=== PATIENT | female | born 1965 | race African-American/Black ===

== ENCOUNTER 2016-12-09 07:30 | Inpatient (IN) ==
[2017-01-08 15:06] LABS: MANUAL DIFF NEEDED? NO; URINE MICRO REVIEW NEEDED? NO; URINE SOURCE CLEAN CATCH
[2017-01-08 15:12] LABS: BASO% 0.3 % (0.0-0.8); BILIRUBIN URINE NEGATIVE (NEGATIVE); BLOOD URINE NEGATIVE (NEGATIVE); COLOR YELLOW; EOS# 0.25 X1000 (0.0-0.7); EOS% 3.6 % (0.0-10.0); GLUCOSE URINE NEGATIVE (NEGATIVE); HEMATOCRIT 38.3 % (37.0-47.0); HEMOGLOBIN 12.4 g/dL (12.0-16.0); LEUKOCYTES URINE NEGATIVE (NEGATIVE); LYMPH% 20.1 % (20.5-51.1); MCH 30.8 PG (27-31); MCHC 32.4 g/dL (33-37); MONO# 0.63 X1000 (0.11-0.59); MPV 10.3 FL (7.4-10.4); NITRITE URINE NEGATIVE (NEGATIVE); PH URINE 5.5; PLT 222 X1000 (130-400); PROTEIN URINE TRACE mg/dL (NEGATIVE); RBC 4.03 XMIL (4.2-5.4); TURBIDITY URINE CLEAR (CLEAR); UR EPITHELIAL CELLS <10 /HPF (<10); URINE BACTERIA 4+ /HPF; URINE RBC <10 /HPF (<10); URINE WBC <10 /HPF (<10); UROBILINOGEN URINE NORMAL (NORMAL)
[2017-01-08 15:20] LABS: INR 0.97; PROTIME 10.2 Seconds (9.2-11.7); PTT 24.7 Seconds (22.0-36.0)
[2017-01-08 15:32] LABS: AGAP 10; BUN 11 mg/dL (8-22); CALCIUM 9.3 mg/dL (8.8-10.2); CHLORIDE 106 mmol/L (98-107); COSMO 284; POTASSIUM 3.1 mmol/L (3.5-5.1); SODIUM 143 mmol/L (136-145); TCO2 27 mmol/L (25-35)
--- NOTE | 2017-01-08 16:41 | EKG Report ---
Test Performed on : 01/08/2017 2:21:03 PM Test Reason : PAT Blood Pressure : / mmHG Vent. Rate : 069 BPM Atrial Rate : 069 BPM P-R Int : 104 ms QRS Dur : 072 ms QT Int : 414 ms P-R-T Axes : 056 017 037 degrees QTc Int : 443 ms Sinus rhythm. with short AR Possible Left atrial enlargement Borderline ECG When compared with ECG of 01-APR-2016 05:56, No significant change was found Confirmed by Erlinda Kuo MD ([id number]) on 01/10/2017 12:58:28 PM
[2017-01-13] MEDS ORDERED: REGLAN ONE (09:38)
[2017-01-13] MEDS ORDERED: LYRICA ONE (09:38)
[2017-01-13] MEDS ORDERED: COLACE ONE (09:38)
[2017-01-13] MEDS ORDERED: PEPCID ONE (09:38)
[2017-01-13] MEDS ORDERED: CELEBREX ONE (09:38)
[2017-01-13] MEDS ORDERED: VANCOMYCIN 1 GM/NS 1 GM/250 ML IVPB ONE (09:39)
[2017-01-13] MEDS ORDERED: LR 1,000 ML ONE (09:39)
[2017-01-13] MEDS ORDERED: SENSORCAINE 0.25%/EPI 1:200,000 ONE (11:40)
[2017-01-13] MEDS ORDERED: CYKLOKAPRON 1,000 MG/NS 2,000 MG/200 ML IVPB ONE (11:40)
[2017-01-13] MEDS ORDERED: VANCOMYCIN ONE (11:40)
[2017-01-13] MEDS ORDERED: TORADOL ONE (11:40)
[2017-01-13] MEDS ORDERED: SODIUM CHLORIDE 0.9% ONE (11:40)
[2017-01-13] MEDS ORDERED: DURAMORPH ONE (11:40)
[2017-01-13] MEDS ORDERED: NEOSPORIN G.U. IRRIGANT ONE (11:41)
[2017-01-13] MEDS ORDERED: EXPAREL 1.3% ONE (11:41)
[2017-01-13] MEDS ORDERED: DIPRIVAN 1% ONE (12:18)
[2017-01-13] MEDS ORDERED: NORCURON ONE (12:22)
[2017-01-13] MEDS ORDERED: SODIUM CHLORIDE 0.9% 10 ML ONE (12:22)
[2017-01-13] MEDS ORDERED: QUELICIN (DOSE) ONE (12:22)
[2017-01-13] MEDS ORDERED: XYLOCAINE-MPF 2% ONE (12:24)
[2017-01-13] MEDS ORDERED: OFIRMEV 1000 MG/ISOTONIC SOLN 1,000 MG/100 ML BOTTLE ONE (13:02)
[2017-01-13] MEDS ORDERED: ZOFRAN ONE (13:02)
[2017-01-13] MEDS ORDERED: DECADRON ONE (13:02)
[2017-01-13] MEDS ORDERED: FENTANYL ONE (13:16)
[2017-01-13 13:20] LABS: URINE MICRO REVIEW NEEDED? NO; URINE SOURCE CATH
[2017-01-13 13:22] LABS: BILIRUBIN URINE NEGATIVE (NEGATIVE); BLOOD URINE NEGATIVE (NEGATIVE); COLOR YELLOW; GLUCOSE URINE NEGATIVE (NEGATIVE); LEUKOCYTES URINE NEGATIVE (NEGATIVE); NITRITE URINE NEGATIVE (NEGATIVE); PH URINE 6.5; PROTEIN URINE NEGATIVE (NEGATIVE); SP GRAVITY URINE 1.017; TURBIDITY URINE CLEAR (CLEAR); UR EPITHELIAL CELLS <10 /HPF (<10); URINE BACTERIA NEGATIVE /HPF; URINE RBC <10 /HPF (<10); URINE WBC <10 /HPF (<10); UROBILINOGEN URINE 2 mg/dL (NORMAL)
[2017-01-13] MEDS ORDERED: ROBINUL ONE ×4 (13:27→14:17)
[2017-01-13] MEDS ORDERED: NEOSTIGMINE ONE (14:07)
[2017-01-13] MEDS ORDERED: NS 1,000 ML ONE (14:51)
[2017-01-13] MEDS: MORPHINE ONE ×2 (15:10→15:15)
[2017-01-13] MEDS ORDERED: MORPHINE ONE (15:38)
[2017-01-13] MEDS ORDERED: MORPHINE IV PRN (17:15)
[2017-01-13] MEDS ORDERED: ZOFRAN IV PRN (17:15)
[2017-01-13] MEDS ORDERED: MILK OF MAGNESIA PO PRN (17:30)
[2017-01-13] MEDS ORDERED: AMBIEN PO PRN (17:30)
[2017-01-13] MEDS: GLUCOPHAGE PO SCH (17:43)
[2017-01-13] MEDS: OXY IR PO PRN ×2 (17:43→20:30)
[2017-01-13] MEDS: TYLENOL PO SCH (17:44)
[2017-01-13] MEDS: KLOR-CON PO SCH (17:44)
[2017-01-13] MEDS: NS 1,000 ML IV SCH (17:44)
[2017-01-13] MEDS: ULTRAM PO SCH (18:15)
--- NOTE | 2017-01-13 19:03 | OPERATIVE NOTE ---
PROCEDURE DATE: 01/13/2017 PREOPERATIVE DIAGNOSIS: Right knee degenerative joint disease. POSTOP DIAGNOSIS: Right knee degenerative joint disease. PROCEDURE: Right total knee arthroplasty using a [facility] size 4 femur, a size 4 tibial base plate, a 10 mm polyethylene insert and a 35 mm patellar component. ANESTHESIA: General. SURGEON: Dr. Ugalde. SAP DATA ARCHITECT: Hannah Rodriguez PA-C who was present throughout the case and was critical with assisting in the preparation for the total knee, the cementing of the total knee and wound closure. 2ND SAP DATA ARCHITECT: Edenilson Peterson PA-C. COMPLICATIONS: None. BLOOD LOSS: Minimal. DRAINS: Hemovac x1. TOURNIQUET TIME: Approximately hour and a half. DESCRIPTION OF PROCEDURE: The patient brought to the operative suite and placed in supine position. After successful administration of general anesthesia, a well-padded tourniquet was placed on the right proximal thigh and right lower extremity was prepped and draped in usual sterile fashion. Leg was exsanguinated. Tourniquet insufflated to 350 torr. A longitudinal incision made beginning superior pole of patella extended distally tibia tuberosity, was dissected sharply through skin. Full-thickness skin flaps were elevated medially and laterally. A medial arthrotomy was made with vastus snip. The medial capsule was elevated off the medial tibial plateau. Prepatellar fat pad, ACL, PCL, medial meniscus, lateral meniscus were excised. A drill was entered in the center of distal femur. Intramedullary guide was placed, his cutting block was pinned in place, distal cut was made with oscillating saw. Femur sized to size 4, size 4 cutting block was pinned in place. Anterior cuts, chamfer cuts and posterior condylar cuts were made with oscillating saw. Marginal osteophytes removed with rongeur. A box cutting block was pinned in place. A box cut was made with a box osteotome and oscillating saw. The posterior condyle osteophytes removed with curved osteotome and rongeur. Attention then directed to the tibia. A drill was entered in the center tibia, intramedullary guide was placed, line was checked with drop reginaldo referencing off the anterior cortex tibia and the second ray of the foot and then taking 4 mm off the low side of the tibia which this case was medially. The tibial cutting block was pinned in place. The articular surface of the tibial plateau was made with oscillating saw. Marginal osteophytes removed with rongeur. Flexion-extension gaps were checked and balanced at 10 mm. The tibia sized to size 4, size 4 guide was used for the fin punch. The tibial trial, femoral trial and 10 mm articular insert placed, taken through range of motion, found to have excellent alignment, balancing, range of motion. Attention was then directed to patella, 9 mm of the articular surface of patella removed with oscillating saw, patella sized to size 35. A size 35 guide was used for the peg holes. The lateral facet was chamfered 30-45 degrees. Patella trial was placed, taken through range of motion found have excellent patella tracking. All trials were then removed. Knee was copiously irrigated and dried being certain all bone debris was removed. The tibial component, femoral component and patellar component were cemented in place excess cement being removed with a [place]. Once the cement had hardened excess cement was again removed with an osteotome. Knee was again copiously irrigated and dried being certain all bone and cement were removed. The trial articular insert was removed. The knee was copiously infiltrated with Exparel including the posterior capsule, anterior capsule, medial and lateral collateral ligaments, anterior musculature and subcutaneous tissue, the definitive 10 mm articular insert was then locked into place, the knee was again taken through range of motion, again found to have excellent alignment, balancing, range of motion and patellar tracking. A drain was placed exiting superolaterally and buried in the lateral gutter. The medial arthrotomy was closed with a running 0 V-Loc suture. The skin edge approximated with 2-0 Vicryl. Skin was closed with Prineo. A sterile dressing was applied. The patient tolerated the procedure well without complication. At the end the procedure all counts were correct x2. The patient was transferred to the recovery room in stable condition. cc: Macario Ugalde MD
[2017-01-13] MEDS: DULERA 100 MCG/5 MCG INHALER INH SCH (19:56)
[2017-01-13] MEDS: PERIDEX MT SCH (20:21)
[2017-01-13] MEDS: OMNICEF PO SCH (20:21)
[2017-01-13] MEDS: ZANAFLEX PO SCH (20:21)
[2017-01-13] MEDS: LYRICA PO SCH (20:22)
[2017-01-13] MEDS: COLACE PO SCH (20:24)
[2017-01-13] MEDS: CELEBREX PO SCH (20:24)
[2017-01-13] MEDS: COREG PO SCH (20:30)
[2017-01-13] MEDS: PATIENT'S OWN MED PO SCH (20:30)
[2017-01-13] MEDS ORDERED: LIPITOR PO SCH (21:00)
[2017-01-14] MEDS: TYLENOL PO SCH ×3 (00:20→12:21)
[2017-01-14] MEDS: ULTRAM PO SCH ×3 (00:20→12:21)
[2017-01-14] MEDS ORDERED: VANCOMYCIN 1 GM/NS 1 GM/250 ML IVPB IV ONE (00:30)
[2017-01-14 05:49] LABS: HEMATOCRIT 36.6 % (37.0-47.0); HEMOGLOBIN 11.6 g/dL (12.0-16.0)
[2017-01-14] MEDS ORDERED: XARELTO PO SCH (06:00)
[2017-01-14 06:16] LABS: AGAP 13; BUN 12 mg/dL (8-22); CALCIUM 8.6 mg/dL (8.8-10.2); CHLORIDE 101 mmol/L (98-107); COSMO 273; POTASSIUM 4.6 mmol/L (3.5-5.1); SODIUM 136 mmol/L (136-145); TCO2 22 mmol/L (25-35)
[2017-01-14] MEDS: NS 1,000 ML IV SCH (06:41)
[2017-01-14] MEDS: ZANAFLEX PO SCH ×2 (06:41→12:22)
[2017-01-14] MEDS ORDERED: SPIRIVA INH SCH (07:30)
[2017-01-14] MEDS: DULERA 100 MCG/5 MCG INHALER INH SCH (07:56)
[2017-01-14 08:33] VITALS: BP 104/63
[2017-01-14] MEDS ORDERED: NON-FORMULARY MED PO SCH (09:00)
[2017-01-14] MEDS ORDERED: FERROUS SULFATE PO SCH (09:00)
[2017-01-14] MEDS ORDERED: DECADRON IV ONE (09:00)
[2017-01-14] MEDS ORDERED: PRINIVIL PO SCH (09:00)
[2017-01-14] MEDS ORDERED: CELEXA PO SCH (09:00)
[2017-01-14] MEDS ORDERED: PEPCID PO SCH (09:00)
[2017-01-14] MEDS: OMNICEF PO SCH (09:08)
[2017-01-14] MEDS: GLUCOPHAGE PO SCH (09:08)
[2017-01-14] MEDS: LYRICA PO SCH (09:09)
[2017-01-14] MEDS: COREG PO SCH (09:09)
[2017-01-14] MEDS: COLACE PO SCH (09:09)
[2017-01-14] MEDS: KLOR-CON PO SCH ×2 (09:09→12:22)
[2017-01-14] MEDS: CELEBREX PO SCH (09:09)
[2017-01-14] MEDS: PERIDEX MT SCH (09:10)
[2017-01-14] MEDS: PATIENT'S OWN MED PO SCH (09:12)
--- NOTE | 2017-01-14 19:32 | DISCHARGE SUMMARY ---
ADMISSION DATE: 01/13/2017 DISCHARGE DATE: 01/14/2017 DISCHARGE DIAGNOSIS: Right knee degenerative joint disease status post right total knee arthroplasty. DISCHARGE MEDICATIONS: See discharge medication list. DISPOSITION: The patient is discharged home with home health. DISCHARGE INSTRUCTIONS FOR TOTAL KNEE ARTHROPLASTY PROTOCOL: Instructed to return to see Dr. Ugalde next . HOSPITAL COURSE: On the day of admission, patient underwent a right total knee arthroplasty. Her postoperative course was unremarkable. Her hemoglobin is 11.3 and hematocrit is 36.6. She had 100 mL of drainage from her Hemovac. Her wound is clean, dry, and intact without sign of infection. Her calf is soft. She will be discharged home after working with Physical Therapy this morning. She will be discharged home with home health, in stable condition, with instructions to follow up as described above. Dictated by AILYN Palmer for Macario Ugalde MD cc: AILYN Palmer MD
== END 2017-01-14 13:33 | disposition home health service (06) ==
LOC: SURHOLD 01-13 09:12 → 4N 01-13 12:44
PROVIDERS: ADMIT Orthopaedic Surgery; ATTEND Orthopaedic Surgery

== ENCOUNTER 2019-08-18 07:42 | Inpatient (IN) ==
--- NOTE | 2019-08-18 08:05 | Diag Imaging Result Doc PS360 ---
EXAM: CT HEAD W/O CONTRAST HISTORY: stroke like sx TECHNIQUE: Images were obtained from the skull base to vertex without IV contrast as per standard protocol. This exam was performed using automated exposure control, adjustment of mA or kV according to patient size, and/or use of iterative reconstruction technique. COMPARISON: 05/15/2018 Extra-axial spaces: Normal. No hematoma is appreciated. Ventricular system /subarachnoid spaces/cisterns: Unremarkable. No hydrocephalus. No hemorrhage is appreciated. Cerebral parenchyma : There are is an old right parietal infarct. Mild diffuse cerebral atrophy. No hemorrhage is appreciated. Midline shift: None. Cerebellum/Brain stem: Unremarkable. Calvarium: No fracture is identified. Paranasal sinuses and mastoid air cells: Right maxillary mucous retention cyst or polyp. Otherwise, unremarkable. Visualized orbits: Normal. IMPRESSION: Old right parietal infarct. Cerebral atrophy. No acute intracranial abnormality is appreciated. Electronically signed by Jazmin Mcfadden 08/18/2019 8:03 AM
--- NOTE | 2019-08-18 08:06 | Diag Imaging Result Doc PS360 ---
EXAM: CHEST-1 VIEW HISTORY: stroke like sx TECHNIQUE: Single view. COMPARISON: 06/04/2019 FINDINGS: Exam is limited by portable technique and body habitus. The cardiomediastinal silhouette is within normal limits. The pulmonary vasculature is not congested. No infiltrate, effusion, or pneumothorax is appreciated. Marked degenerative arthropathy bilateral shoulders. IMPRESSION: No acute cardiopulmonary abnormality is identified. Electronically signed by Jazmin Mcfadden 08/18/2019 8:04 AM
[2019-08-18] MEDS ORDERED: NS 1,000 ML IV PRN (08:10)
--- NOTE | 2019-08-18 08:17 | PROVIDER DOCUMENTATION ---
HPI-Neurological Disorder - General Chief Complaint: STROKE ALERT Stated Complaint: CVA Time Seen by Provider: 08/18/19 08:02 Source: patient Allergies/Adverse Reactions: Patient Allergies Allergy/AdvReac Type Severity Reaction Status Date / Time Penicillins Allergy SWELLING Verified 06/28/19 15:06 Home Medications: Home Medication List Medication Instructions Recorded Confirmed Last Taken Type ATORVAstatin [Lipitor] 80 mg PO QHS 03/28/16 08/18/19 04/05/18 21:00 History Citalopram [Celexa] 40 mg PO DAILY 03/28/16 08/18/19 04/05/18 09:00 History Metformin HCl 500 mg PO BID 03/28/16 08/18/19 04/05/18 21:00 History Apixaban [Eliquis] 1 tab PO BID 02/14/18 08/18/19 04/05/18 21:00 History Aspirin [[place] Chewable Aspirin] 81 mg PO DAILY 02/14/18 08/18/19 04/05/18 09:00 History Albuterol 2.5MG/Ipratrop 0.5MG 3 ml IN Q4HR PRN 02/15/18 08/18/19 04/05/18 09:00 History [Duoneb (A & A)] Gabapentin 300 mg PO TID 02/15/18 08/18/19 04/05/18 21:00 History Montelukast [Singulair] 1 tab PO DAILY 02/15/18 08/18/19 04/05/18 21:00 History Albuterol Sulfate [Proair Hfa] 2 puff INH BID 05/16/18 08/18/19 Unknown History Mometasone/Formoterol [Dulera 200 2 puff INH DAILY PRN 05/16/18 08/18/19 Unknown History Mcg/5 Mcg Inhaler] Hydrocodone/Acetaminophen 1 ea PO 4XDAY PRN 10/09/18 08/18/19 Unknown History [Hydrocodone-Acetamin 5-325 mg] Cholecalciferol (Vitamin D3) 50,000 unit PO DIRECTED #8 cap 10/10/18 08/18/19 Unknown Rx [Vitamin D] Magnesium Oxide [Mag-Ox] 800 mg PO BID #10 tab 10/10/18 08/18/19 Unknown Rx Potassium Chloride [Klor-Con M20] 20 meq PO DAILY 12/04/18 08/18/19 Unknown History Buspirone HCl 1 tab PO BID 08/18/19 08/18/19 Unknown History Carvedilol [Coreg] 6.25 mg PO BID 08/18/19 08/18/19 Unknown History Ergocalciferol (Vitamin D2) 1 tab PO DIRECTED 08/18/19 08/18/19 Unknown His tory [Vitamin D] Escitalopram [Lexapro] 10 mg PO DAILY 08/18/19 08/18/19 Unknown History Furosemide [Lasix] 40 mg PO DIRECTED 08/18/19 08/18/19 Unknown History Pantoprazole [Protonix] 40 mg PO DAILY@0700 08/18/19 08/18/19 Unknown History - History of Present Illness-Neuro Nature of Presenting Problem: this am ~0700, 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 No fever. Has some difficulty with speech as well. No CP, No SOB, No N/V. Had a CVA in 09/2017. Sx continue, nothing makes better, worse Severity: reports: moderate Onset/Duration: reports: abrupt Timing: reports: still present Context: reports: impaired speech Character of Altered Mental Status: reports: N/A Any recent trauma/injury?: reports: none Character of Deficits: reports: new weakness Review of Systems - Adult - REVIEW OF SYSTEMS - ADULT Constitutional: reports: no symptoms reported Eyes: reports: no symptoms reported Ears, Nose, Mouth & Throat: reports: no symptoms reported Cardiovascular: reports: no symptoms reported Respiratory: reports: no symptoms reported Gastrointestinal: reports: no symptoms reported Genitourinary: reports: no symptoms reported Musculoskeletal: reports: no symptoms reported Integumentary: reports: no symptoms reported Neurological: reports: see HPI Psychiatric: reports: no symptoms reported Endocrine: reports: no symptoms reported Hematologic/Lymphatic: reports: no symptoms reported Allergic/Immunologic: reports: no symptoms reported Past History - Adult - PAST MEDICAL HISTORY-ADULT Review of Records: reports: Medications Reviewed Major Childhood Illnesses: reports: denies history Cardiovascular: reports: CAD, CHF ("enlarged heart"), HTN, hyperlipidemia, [place] Respiratory: reports: asthma, COPD, other (pulmonary embolism) Gastrointestinal: reports: GERD Obstetrical/Gynecological: reports: denies history Genitourinary: reports: denies history Musculoskeletal: reports: arthritis, chronic pain (biltateral knees) Neurological: reports: CVA, stroke deficits Psychiatric: reports: depression Endocrine/Immune: reports: Diabetes Other Conditions: reports: denies history - PRIOR SURGERIES/PROCEDURES Surgical/Procedure History: reports: cholecystectomy, hysterectomy, orthopedic (extremity), joint replacement - IMMUNIZATION STATUS Childhood Immunizations: See Nurse Assessment Flu Vaccine: See Nurse Assessment - FAMILY HISTORY Family History: reviewed, not pertinent - SOCIAL HISTORY Smoking: denies Physical Exam- Neurological - Physical Exam-Neuro Initial Vital Signs Reviewed: Yes General Appearance: alert, moderate distress Eye Exam: bilateral eye: normal inspection, PERRL, EOMI HENMT: normocephalic/atraumatic, moist mucous membranes, normal ENT inspection, pharynx normal Head Injury: no evidence of injury Neck: full range of motion, supple Respiratory: lungs clear, normal breath sounds, no pleuratic chest pain, no respiratory distress, no accessory muscle use Cardiovascular: normal peripheral pulses, regular rate, rhythm Abdominal Exam: normal bowel sounds, non tender, soft Peripheral Pulses: radial (R): 2+ 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 sl weakness L CN VII, div 1-3) Coordination/Gait: normal finger to nose (On R, cannot lift L arm, has only2/5 stregnth L leg) Motor/Sensory: no sensory deficit Integumentary: normal color, normal turgor, warm/dry Psych/Mental Status: normal mood/affect, normal thought content, normal thought process, oriented x 3 - [place] Coma Scale Best Eye Response: (4) open spontaneously Best Verbal Response: (5) oriented Best Motor Response: (6) obeys commands Progress - PLAN OF CARE/RESULTS Progress/Plan/Lab Results: Vital Signs - 8 hr 08/18/19 08:01 08/18/19 08:29 08/18/19 10:07 Temperature 98.5 F Pulse Rate 60 57 L 59 L Respiratory Rate 18 20 20 Blood Pressure 172/85 158/91 O2 Sat by Pulse Oximetry 99 99 100 Laboratory Results - last 24 hr 08/18/19 08/18/19 08/18/19 08:20 08:20 08:20 WBC 5.35 RBC 4.04 L Hgb 11.8 L Hct 37.9 MCV 93.8 MCH 29.2 MCHC 31.1 L RDW Std Deviation 14.9 H Plt Count 220 MPV 10.2 Immature Gran % (Auto) 0.0 Neut % (Auto) 63.5 Lymph % (Auto) 21.7 [place] % (Auto) 11.0 H Eos % (Auto) 3.4 Baso % (Auto) 0.4 Immature Gran # (Auto) 0.00 Neut # (Auto) 3.40 Lymph # (Auto) 1.16 L [place] # (Auto) 0.59 Eos # (Auto) 0.18 Baso # (Auto) 0.02 PT 13.8 INR 1.01 PTT (Actin FS) 27.5 Sodium 144 Potassium 3.9 Chloride 102 Carbon Dioxide 30 Anion Gap 12 BUN 11 Creatinine 0.8 Estimated GFR/1.73 m2 > 60 BUN/Creatinine Ratio 14 Glucose 88 Calculated Osmolality 286 Calcium 9.8 Total Bilirubin 0.50 AST 19 ALT 19 Alkaline Phosphatase 96 Troponin T High Sens Total Protein 7.1 Albumin 4.4 Globulin 3.0 Albumin/Globulin Ratio 2.0 Urine Source Urine Color Urine Clarity Urine Turbidity Urine pH Ur Specific [place] Urine Protein Ur Glucose (Stick) Urine Ketones Ur Ketones (Stick) Urine Blood Urine Nitrite Urine Bilirubin Urine Urobilinogen Urobilinogen Dipstick Urine Leukocytes Urine WBC (Auto) Urine RBC (Auto) U Epithel Cells (Auto) Urine Bacteria (Auto) Urine Microscopic RBC Urine WBC Urine Microscopic WBC Ur Epithelial Cells Urine Crystals Urine Bacteria Urine Casts Urine Yeast Urine Glucose Urine Opiates Screen Ur Oxycodone Screen Urine Methadone Screen U Propoxyphene Qual Ur Barbituates Screen Ur Tricyclics Screen Ur Phencyclidine Scrn Ur Amphetamines Screen U Methamphetamines Scrn U Benzodiazepines Scrn Urine Cocaine Screen U Cannabinoids Screen 08/18/19 08/18/19 08/18/19 08:20 08:40 08:40 WBC RBC Hgb Hct MCV MCH MCHC RDW Std Deviation Plt Count MPV Immature Gran % (Auto) Neut % (Auto) Lymph % (Auto) [place] % (Auto) Eos % (Auto) Baso % (Auto) Immature Gran # (Auto) Neut # (Auto) Lymph # (Auto) [place] # (Auto) Eos # (Auto) Baso # (Auto) PT INR PTT (Actin FS) Sodium Potassium Chloride Carbon Dioxide Anion Gap BUN Creatinine Estimated GFR/1.73 m2 BUN/Creatinine Ratio Glucose Calculated Osmolality Calcium Total Bilirubin AST ALT Alkaline Phosphatase Troponin T High Sens 15 Total Protein Albumin Globulin Albumin/Globulin Ratio Urine Source CATH Urine Color YELLOW Urine Clarity CLEAR Urine Turbidity Cancelled Urine pH 7.0 Ur Specific [place] 1.000 Urine Protein NEGATIVE Ur Glucose (Stick) Cancelled Urine Ketones NEGATIVE Ur Ketones (Stick) Cancelled Urine Blood NEGATIVE Urine Nitrite NEGATIVE Urine Bilirubin NEGATIVE Urine Urobilinogen 0.2 Urobilinogen Dipstick Cancelled Urine Leukocytes Cancelled Urine WBC (Auto) Cancelled Urine RBC (Auto) Cancelled U Epithel Cells (Auto) Cancelled Urine Bacteria (Auto) Cancelled Urine Microscopic RBC <10 Urine WBC TRACE A Urine Microscopic WBC <10 Ur Epithelial Cells <10 Urine Crystals NONE SEEN Urine Bacteria NEGATIVE Urine Casts NONE SEEN Urine Yeast NONE SEEN Urine Glucose NEGATIVE Urine Opiates Screen PRESUMPTIVE POSITIVE A Ur Oxycodone Screen NONE DETECTED Urine Methadone Screen NONE DETECTED U Propoxyphene Qual NONE DETECTED Ur Barbituates Screen NONE DETECTED Ur Tricyclics Screen NONE DETECTED Ur Phencyclidine Scrn NONE DETECTED Ur Amphetamines Screen NONE DETECTED U Methamphetamines Scrn NONE DETECTED U Benzodiazepines Scrn NONE DETECTED Urine Cocaine Screen NONE DETECTED U Cannabinoids Screen NONE DETECTED Orders Category Date Time Status Cardiac Monitoring DIRECTED Care 08/18/19 08:11 Active Finger Stick Blood Sugar (ED) DIRECTED Care 08/18/19 08:11 Active Misc. NRSG Communication Order DIRECTED Care 08/18/19 08:11 Active Saline Loc NOW Care 08/18/19 08:11 Active CHEST-1 VIEW [RAD] Stat Exams 08/18/19 07:[address] HEAD W/O CONTRAST [CT] Stat Exams 08/18/19 07:50 Completed CBC WITH ELECTRONIC DIFF [HEME] Stat Lab 08/18/19 08:20 Completed COMPREHENSIVE METABOLIC PANEL [CHEM] Stat Lab 08/18/19 08:20 Completed PROTIME WITH INR [COAG] Stat Lab 08/18/19 08:20 Completed PTT [COAG] Stat Lab 08/18/19 08:20 Completed TROPONIN T HIGH SENSITIVITY Stat Lab 08/18/19 08:20 Completed URINE CULTURE [RM] Routine Lab 08/18/19 09:23 [address] DRUG SCREEN [address] Stat Lab 08/18/19 08:40 Completed 0.9% Sodium Chloride Inj [Ns] 1,000 ml Med 08/18/19 08:10 Active IV 130 mls/hr EKG [EKG] Stat Ther 08/18/19 08:11 Draft Result Diagrams: 08/18/19 08:20 08/18/19 08:20 - XRAY 1 XRAY Study: Chest Impression: Normal (EXAM: CHEST-1 VIEW HISTORY: stroke like sx TECHNIQUE: Single view. COMPARISON: 06/04/2019 FINDINGS: Exam is limited by portable technique and body habitus. The cardiomediastinal silhouette is within normal limits. The pulmonary vasculature is not congested. No infiltrate, effusion, or pneumothorax is appreciated. Marked degenerative arthropathy bilateral shoulders. IMPRESSION: No acute cardiopulmonary abnormality is identified. Electronically signed by Jazmin Mcfadden 08/18/2019 8:04 AM 08/18/19 0804 Interpreting Physician: Jazmin Mcfadden MD Dictated Date/Time: 08/18/19 08 cc: Josh Lainez MD;) - CT/MRI 1 CT Study: Head Impression: Abnormal (EXAM: CT HEAD W/O CONTRAST HISTORY: stroke like sx TECHNIQUE: Images were obtained from the skull base to vertex without IV contrast as per standard protocol. This exam was performed using automated exposure control, adjustment of mA or kV according to patient size, and/or use of iterative reconstruction technique. COMPARISON: 05/15/2018 Extra-axial spaces: Normal. No hematoma is appreciated. Ventricular system /subarachnoid spaces/cisterns: Unremarkable. No hydrocephalus. No hemorrhage is appreciated. Cerebral parenchyma : There are is an old right parietal infarct. Mild diffuse cerebral atrophy. No hemorrhage is appreciated. Midline shift: None. Cerebellum/Brain stem: Unremarkable. Calvarium: No fracture is identified. Paranasal sinuses and mastoid air cells: Right maxillary mucous retention cyst or polyp. Otherwise, unremarkable. Visualized orbits: Normal. IMPRESSION: Old right parietal infarct. Cerebral atrophy. No acute intracranial abnormality is appreciated. Electronically signed by Jazmin Mcfadden 08/18/2019 8:03 AM 08/18/19 0803 Interpreting Physician: Jazmin Mcfadden MD Dictated Date/Time: 08/18/19 08 cc: Josh Lainez MD;) - CONSULTS/PCP/HOSPITALIST Notification #1 *Consult/PCP/Hospitalist*: [place] Time Discussed: 09:00 Consult Disposition: Will see in ED, Admit Departure - Departure Date of Disposition Decision: 08/18/19 Time of Disposition Decision: 09:00 DIAGNOSIS: CVA (cerebral vascular accident), HTN (hypertension), Non-insulin dependent type 2 diabetes mellitus, CHF (congestive heart failure) Disposition: ADMITTED INPATIENT Certified Medical Emergency: Emergent Condition: Good Referrals and Follow-Ups: Daniella Sandoval [Primary Care Provider] - - Critical Care Note This patient required my direct & personal management of CC.: No Attestation - Physician/ JELENA Attestation Patient care was provided by Advanced Practice Provider:: No The physician spent face to face time with patient:: Yes Advanced Practice Provider documentation review:: Supervising physician onsite and consulted in the evaluation and care of this patient. The physician did have a face to face encounter with the patient. - NIH Stroke Scale NIH Type: Initial Evaluation Level of Consciousness: 0-Alert LOC Questions (ask month and age): 0-Answers Both Correctly LOC Commands (ask to open & close eyes;make a fist, let go): 0-Obeys Both Correctly Best Gaze (horizontal eye movement): 0-Normal Visual (use finger movement, counting or visual threat): 0-No Visual Loss Facial Palsy (show teeth or raise eyebrows & close eyes tght: 1-Minor Paralysis Motor Function-left arm: 3-No Effort Against [place] Motor Function-right arm: 0-Normal Motor Function-left le-Some Effort Against [place] Motor Function-right le-Normal Limb Ataxia(echqiw-fjen-siwugf, or heel to alfaro): 1-Present in one limb Sensory(pin prick to face,arms,trunk,legs-compare side/side): 0-No Ataxia Best Language(name item/read sentence.Ex-Down to Earth): 1-Mild to Moderate Aphasia Dysarthria(Pt read words or say words Ex.Mama,Tip-Top,Thanks: 1-Mild-Mod Slurring Words Extinction and Inattention: 0-Normal NIH Total Score: 9 Modified [place] Score Criteria: 3-moderate disability Stroke tPA Guidelines - Inclusion Criteria for IV tPA 18 years old or older: Yes Ischemic stroke with measurable deficit: Yes Onset <3 hours ago *OR* 3-4.5 hours ago: Yes - Exclusion Criteria for IV tPA Evidence of intracranial hemorrhage on CT: No Presentation suggest SAH: No CT reveals defined area of hypodensity: No Evidence of AVM, neoplasm, aneurysm: No Seizure at stroke onset: No Active internal bleeding or acute trauma: No Platelet Count Less Than 100,000: No Heparin Within Last 48 HRS (PTT >Lab normal limits): No INR > 1.7 (warfarin use): No Use IIB/IIIA inhibitors within 24 hours: No Serious Head Trauma Within Last 3 Months: No Arterial Puncture Within Last 7 Days: No Lumbar Puncture Within Last 7 Days: No Repeated systolic Blood Pressure >185 or Diastolic >110: No - Additional Exclusion Criteria for IV tPA Patient older than 80: No Prior stroke and diabetes: Yes - Relative Contraindications to IV tPA Minor or rapidly improving stroke symptoms: No
--- NOTE | 2019-08-18 08:30 | EKG Report ---
Test Performed on : 08/18/2019 08:12:34 AM Test Reason : CVA Blood Pressure : / mmHG Vent. Rate : 058 BPM Atrial Rate : 058 BPM P-R Int : 122 ms QRS Dur : 076 ms QT Int : 428 ms P-R-T Axes : 040 019 041 degrees QTc Int : 420 ms Sinus bradycardia. Otherwise normal ECG When compared with ECG of 04-JUN-2019 18:23, (Unconfirmed) No significant change was found Unconfirmed Result
[2019-08-18 08:32] LABS: BASO# 0.02 X1000 (0.0-0.2); BASO% 0.4 % (0.0-0.8); EOS# 0.18 X1000 (0.0-0.7); EOS% 3.4 % (0.0-10.0); HEMATOCRIT 37.9 % (37.0-47.0); HEMOGLOBIN 11.8 g/dL (12.0-16.0); LYMPH# 1.16 X1000 (1.2-3.4); LYMPH% 21.7 % (20.5-51.1); MCH 29.2 PG (27-31); MCHC 31.1 g/dL (33-37); MCV 93.8 FL (81-99); MONO# 0.59 X1000 (0.11-0.59); MPV 10.2 FL (7.4-10.4); NEUT% 63.5 % (42.2-75.2); PLT 220 X1000 (130-400); RBC 4.04 XMIL (4.2-5.4); RDW 14.9 % (11.5-14.5); WBC 5.35 X1000 (4.8-10.8)
[2019-08-18 08:46] LABS: INR 1.01; PROTIME 13.8 Seconds (11.0-16.0)
[2019-08-18 08:47] LABS: AGAP 12; ALBUMIN 4.4 g/dL (3.5-5.0); ALKALINE PHOSPHATASE 96 U/L (32-104); BUN 11 mg/dL (8-22); CALCIUM 9.8 mg/dL (8.8-10.2); CHLORIDE 102 mmol/L (98-107); COSMO 286; CREATININE 0.8 mg/dL (0.5-0.9); ESTIMATED GFR > 60; GLUCOSE 88 mg/dL (70-104); GOT 19 U/L (10-30); GPT 19 U/L (10-36); POTASSIUM 3.9 mmol/L (3.5-5.1); PTT 27.5 Seconds (22.3-41.8); SODIUM 144 mmol/L (136-145); TCO2 30 mmol/L (25-35); TOTAL PROTEIN 7.1 g/dL (6.3-8.3)
[2019-08-18 08:54] LABS: URINE SOURCE CATH
[2019-08-18 09:09] LABS: UR AMPHETAMINES QUAL NONE DETECTED (NONE DETECT); UR BARBITUATES QUAL NONE DETECTED (NONE DETECT); UR BENZODIAZEPIN QUAL NONE DETECTED (NONE DETECT); UR CANNABINOIDS QUAL NONE DETECTED (NONE DETECT); UR COCAINE QUAL NONE DETECTED (NONE DETECT); UR METHADONE QUAL NONE DETECTED (NONE DETECT); UR METHAMPHETAMINE QUAL NONE DETECTED (NONE DETECT); UR OPIATES QUAL PRESUMPTIVE POSITIVE (NONE DETECT); UR OXYCODONE QUAL NONE DETECTED (NONE DETECT); UR PCP QUAL NONE DETECTED (NONE DETECT); UR PROPOXYPHENE QUAL NONE DETECTED (NONE DETECT); UR TCA QUAL NONE DETECTED (NONE DETECT)
[2019-08-18 09:10] LABS: BILIRUBIN URINE NEGATIVE (NEGATIVE); BLOOD URINE NEGATIVE (NEGATIVE); CLARITY CLEAR (CLEAR); COLOR YELLOW; GLUCOSE URINE NEGATIVE (NEGATIVE); KETONE URINE NEGATIVE (NEGATIVE); PROTEIN URINE NEGATIVE (NEGATIVE)
[2019-08-18 09:11] LABS: LEUKOCYTES URINE TRACE (NEGATIVE); NITRITE URINE NEGATIVE (NEGATIVE); UROBILINOGEN URINE 0.2 EU/dL (0.2-1.0)
[2019-08-18 09:13] LABS: URINE BACTERIA NEGATIVE /HFP; URINE CAST NONE SEEN /LPF; URINE CRYSTAL NONE SEEN /HPF; URINE EPITHELIAL CELLS <10 /HPF (<10); URINE RBC <10 /HPF (<10); URINE WBC <10 /HPF (<10); URINE YEAST NONE SEEN /HPF
[2019-08-18] MEDS ORDERED: MORPHINE IV ONE (10:17)
[2019-08-18] MEDS ORDERED: TYLENOL PO PRN (10:51)
[2019-08-18] MEDS ORDERED: DULERA 200 MCG/5 MCG INHALER INH PRN (12:36)
[2019-08-18] MEDS: HUMALOG (PARKWAY) SUBQ SCH ×2 (13:17→17:01)
[2019-08-18] MEDS: NEURONTIN PO SCH ×2 (13:38→16:37)
[2019-08-18] MEDS: NORCO-5 PO PRN (13:38)
--- NOTE | 2019-08-18 15:15 | HISTORY AND PHYSICAL ---
PRIMARY CARE PHYSICIAN: Dr. Daniella Sandoval. CHIEF COMPLAINT: Possible CVA. HISTORY OF PRESENT ILLNESS: Ms. Rodrigez is a 53-year-old, female with past medical history of CVA in 09/2018, diabetes mellitus type 2, hypertension, hyperlipidemia, osteoarthritis, obesity, obstructive sleep apnea, GERD, situational depression, and PE. She presents to the ER today with complaint of difficulty moving the left side of her body, dysphasia that started at approximately 7 a.m. this morning. The patient's family member, who is at the bedside, stated that when she woke up this morning, she was doing okay. She was getting her grandchildren up and getting them ready for school. She was sitting on the couch. The daughter noticed that she suddenly was unable to move her left arm. She was complaining of a headache. She was unable to speak or say any words. They did call 911 at that time. She was unable to speak or say the words for the heat sealing machine operator, or unable to smile, so they did send the ambulance at that time. These symptoms did last for around 30 minutes. The patient is able to move her left arm a small amount at this time. She is able to say a few words now. However, they are with a stutter. The patient is complaining of a headache. The patient does deny any fever, chills, flu-like symptoms, cough, congestion, neck pain, excessive thirst, chest pain, palpitations, orthopnea, PND, dyspnea, nausea, vomiting, hematemesis, melena, diarrhea, constipation, dysuria, hematuria, syncope, vertigo, or any other pertinent symptoms at this time. REVIEW OF SYSTEMS: A 10-point review of systems has been obtained and all are negative, except what is stated above in the HPI. PAST MEDICAL HISTORY: 1. Diabetes mellitus type 2. 2. Hypertension. 3. Hyperlipidemia. 4. CVA in 09/2018. 5. Osteoarthritis. 6. Obesity. 7. Obstructive sleep apnea. 8. GERD. 9. Situational depression. 10. Pulmonary embolism, on Eliquis. PAST SURGICAL HISTORY: 1. Cholecystectomy. 2. Bilateral total knee replacements. 3. Carpal tunnel surgery. 4. Tubal ligation. 5. Right shoulder surgery. 6. Left heel surgery. FAMILY HISTORY: Noncontributory. SOCIAL HISTORY: The patient does live with her daughter. She uses a walker to get around. She denies any alcohol, tobacco, or illicit drug use. She denies any use of nebulizers, oxygen, CPAP or BiPAP usage. PHARMACY: [facility] in [place]. ALLERGIES: Penicillin. HOME MEDICATIONS: 1. Celexa 40 mg daily. 2. Metformin 500 mg p.o. b.i.d. 3. Atorvastatin 80 mg p.o. at bedtime. 4. Eliquis 5 mg p.o. b.i.d. 5. Aspirin 81 mg p.o. daily. 6. DuoNebs every 4 hours p.r.n. 7. Gabapentin 300 mg p.o. t.i.d. 8. Singulair 1 tablet p.o. daily. 9. ProAir inhaler 2 puffs inhaled b.i.d. 10. Dulera 2 puffs inhaled daily p.r.n. 11. Hydrocodone/acetaminophen 5/325 mg 1 tablet p.o. 4 times a day p.r.n. 12. Magnesium oxide 800 mg p.o. b.i.d. 13. Vitamin D3, 50,000 units p.o. as directed. 14. Potassium chloride 20 mEq p.o. daily. 15. Vitamin D2, 50,000 units as directed. 16. Lexapro 10 mg p.o. daily. 17. Protonix 40 mg p.o. daily. 18. BuSpar 1 tablet p.o. b.i.d. 19. Coreg 6.25 mg p.o. b.i.d. 20. Lasix 40 mg p.o. as directed. PHYSICAL EXAMINATION: VITAL SIGNS: Temperature 98.5 degrees, pulse rate 60, respiratory rate 18, blood pressure 172/85, O2 saturation 99% on room air. GENERAL: This is a 53-year-old, female. She is well nourished and well developed. She is in no acute distress. HEENT: Atraumatic, normocephalic. Pupils equal, round, reactive to light. Mucous membranes are moist. NECK: Supple. No lymphadenopathy. Trachea midline. No JVD. No thyromegaly. No bruits. CARDIOVASCULAR: Regular rate and rhythm. No murmurs, gallops, or rubs appreciated. RESPIRATORY: Lung sounds clear. Equal chest excursion. Respirations nonlabored. No accessory muscle usage. GASTROINTESTINAL: Abdomen is soft, nontender, nondistended. Bowel sounds present x4. GENITOURINARY: There is no suprapubic tenderness noted. The patient has a Burden catheter that is present in the bladder with clear-yellow urine output. NEUROLOGIC: The patient is awake, alert, and oriented x3. She does have some stuttering noted when she is answering my questions. Speech is very soft. MUSCULOSKELETAL: Decreased strength noted to the left extremities. Right side, no deficits noted. EXTREMITIES: No clubbing, no cyanosis, no edema. DP and PT pulses are present and palpable. SKIN: Warm, dry, and intact. No rashes. No bruises. No diaphoresis. LABORATORY AND DIAGNOSTIC DATA: White blood cell count 5.35, hemoglobin 11.8, hematocrit 37.9, platelet count 220,000. Sodium 144, potassium 3.9, BUN is 11, creatinine 0.8, estimated GFR is greater than 60, glucose 88. Urinalysis is negative. Troponin T series 15. Toxicology positive for opiates. CT of the head shows an old right parietal infarct. No acute intracranial abnormality. Chest x-ray shows no acute cardiopulmonary abnormality. EKG shows sinus bradycardia, rate of 58. ASSESSMENT: 1. Transient ischemic attack, rule out cerebrovascular accident. 2. History of cerebrovascular accident with left-sided residual weakness in 2019. 3. Hypertension. 4. Hyperlipidemia. 5. Diabetes mellitus type 2. 6. History of pulmonary embolism, on Eliquis. 7. Obstructive sleep apnea. 8. Situational depression. 9. Osteoarthritis. 10. Gastroesophageal reflux disease. PLAN: We will admit this patient to the medical floor. We will rule out CVA. We will do an MRI of the brain. Will place this patient on strict bedrest, do aspiration precautions. I will have the nurses do a bedside swallowing study, and only advance the diet if the patient does pass the bedside swallowing study. Will do vital signs every [address] patient on compressor station engineer. Will do supplemental O2. We have consulted Physical Therapy and Speech Therapy. Will repeat labs, BMP, CBC, lipid profile in the morning. I have resumed her home medications. Will keep her on IV fluid hydration overnight. We will do fingersticks before meals and at bedtime, with sliding scale insulin if needed. I have resumed her p.r.n. pain medication, home dose. I will provide her with p.r.n. Tylenol if needed and p.r.n. Zofran. All other further recommendations pending hospital course and laboratory data. Dictated by SUAD Albarado for Walter Saucedo MD cc: MD Daniella Nuñez MD
--- NOTE | 2019-08-18 15:59 | Diag Imaging Result Doc PS360 ---
EXAM: MRI BRAIN W/WO CONTRAST HISTORY: stroke TECHNIQUE: Routine with and without contrast. COMPARISON: 05/15/2018 FINDINGS: There is considerable motion artifact. There is a new area of restricted diffusion within the right periventricular region of the tail of the caudate nucleus measuring 16 mm. Linear restricted diffusion is also noted in the subinsular region. Tiny focal area of restricted diffusion is noted within the right frontoparietal cisneros-white junction. There is unchanged right periventricular cystic encephalomalacia and right parietotemporal T2 hyperintensity . No abnormal signal within the cerebellum, brainstem, or left cerebral hemisphere. No mass effect or shift. IMPRESSION.: Restricted diffusion as described above consistent with small, acute infarcts right tail of the caudate nucleus, subinsular region, right parietal cisneros-white junction. Electronically signed by Jazmin Mcfadden 08/18/2019 3:56 PM
[2019-08-18] MEDS ORDERED: BUSPAR PO SCH (21:00)
[2019-08-18] MEDS: MAG-OX PO SCH (21:06)
[2019-08-18] MEDS: LIPITOR PO SCH (21:06)
[2019-08-18] MEDS: GLUCOPHAGE PO SCH ×2 (21:07→21:08)
[2019-08-18] MEDS: ELIQUIS PO SCH (21:07)
[2019-08-19] MEDS: HUMALOG (PARKWAY) SUBQ SCH ×5 (00:10→21:53)
--- NOTE | 2019-08-19 04:38 | HISTORY AND PHYSICAL ---
ADDENDUM: Patient seen and examined by myself. Full note dictated and discussed with my nurse practitioner. The patient was brought to the hospital with stroke-like symptoms. Notes that she has got increased weakness of her left upper and lower extremities. Denies fevers. Does have a headache. Speech appears intact. We are going to admit her to the hospital, complete workup for new onset stroke, and follow her congestive heart failure as well as her diabetes. cc: Walter Saucedo MD
[2019-08-19 06:11] LABS: HEMOGLOBIN 10.3 g/dL (12.0-16.0); MCH 29.4 PG (27-31); MCHC 31.2 g/dL (33-37); MCV 94.3 FL (81-99); MPV 10.2 FL (7.4-10.4); RBC 3.5 XMIL (4.2-5.4); WBC 5.31 X1000 (4.8-10.8)
[2019-08-19] MEDS: PROTONIX PO SCH ×2 (06:22→09:55)
[2019-08-19 06:27] LABS: AGAP 12; BUN 13 mg/dL (8-22); CALCIUM 8.9 mg/dL (8.8-10.2); CHLORIDE 101 mmol/L (98-107); COSMO 281; CREATININE 0.6 mg/dL (0.5-0.9); ESTIMATED GFR > 60; GLUCOSE 95 mg/dL (70-104); POTASSIUM 4.1 mmol/L (3.5-5.1); SODIUM 141 mmol/L (136-145); TCO2 28 mmol/L (25-35)
[2019-08-19] MEDS: NEURONTIN PO SCH ×3 (09:50→18:58)
[2019-08-19] MEDS: LEXAPRO PO SCH (09:50)
[2019-08-19] MEDS: ELIQUIS PO SCH ×2 (09:50→20:21)
[2019-08-19] MEDS: CELEXA PO SCH (09:50)
[2019-08-19] MEDS: MAG-OX PO SCH ×2 (09:53→20:21)
[2019-08-19] MEDS: GLUCOPHAGE PO SCH ×2 (09:53→20:21)
[2019-08-19] MEDS: BUSPAR PO SCH ×2 (09:54→20:21)
[2019-08-19] MEDS: ASPIRIN PO SCH (09:54)
[2019-08-19] MEDS: NORCO-5 PO PRN (18:39)
[2019-08-19] MEDS: LIPITOR PO SCH (20:21)
--- NOTE | 2019-08-20 01:31 | PROGRESS NOTE ---
DATE: 08/19/2019 SUBJECTIVE: Patient has no new complaints. Notes that she has very little movement in her arm and leg on the left. PHYSICAL EXAMINATION: Vital Signs: Temperature 98.3 degrees, pulse 61, respiratory rate 18, BP 109/55. General: Patient is an obese female who currently is in no respiratory distress. HEENT: Normocephalic. Neck: Supple. Cardiovascular: Regular rate. Chest: Clear and nonlabored. Abdomen: Soft, obese, nondistended. Extremities: Trace edema bilateral. Neurologic: She does have a very minimal med spec on her left and is able to plantar and dorsiflex her foot on the left although very slightly. ASSESSMENT: 1. New onset cerebrovascular accident in a patient with a history of stroke. 2. Previous history of stroke with left-sided residual weakness. 3. Hypertension. 4. Hyperlipidemia. 5. Diabetes. 6. Pulmonary emboli, currently on Eliquis. 7. Situational depression. PLAN: We are going to continue patient in the hospital. MRI showed small acute infarct. We are going to continue physical therapy, oxygen and we will follow. We will continue her home medications. cc: Walter Saucedo MD
[2019-08-20] MEDS: HUMALOG (PARKWAY) SUBQ SCH ×4 (06:15→21:36)
[2019-08-20] MEDS: PROTONIX PO SCH (06:16)
[2019-08-20] MEDS: NEURONTIN PO SCH ×3 (09:09→16:44)
[2019-08-20] MEDS: ELIQUIS PO SCH ×2 (09:10→20:19)
[2019-08-20] MEDS: MAG-OX PO SCH ×2 (09:10→20:19)
[2019-08-20] MEDS: CELEXA PO SCH (09:10)
[2019-08-20] MEDS: BUSPAR PO SCH ×2 (09:10→20:18)
[2019-08-20] MEDS: ASPIRIN PO SCH (09:10)
[2019-08-20] MEDS: LEXAPRO PO SCH (09:10)
[2019-08-20] MEDS: GLUCOPHAGE PO SCH ×2 (09:10→16:44)
[2019-08-20] MEDS: NORCO-5 PO PRN ×2 (16:51→22:58)
[2019-08-20] MEDS: LIPITOR PO SCH (20:19)
--- NOTE | 2019-08-20 23:01 | PROGRESS NOTE ---
DATE: 08/20/2019 SUBJECTIVE: Patient is starting to get a little bit of movement in her left upper and lower extremities. She is able to shrug her shoulder slightly. OBJECTIVE: Vital Signs: Stable. General: She is awake, alert. She is in no distress. She is a very pleasant, overweight female, sitting up in the chair. HEENT: Normocephalic. Neck: Supple. Cardiovascular: Regular rate. Chest: Clear. Abdomen: Soft. Neurologic: Still has marked weakness of her left upper extremity, although she is able to shrug her shoulder slightly. She is able to wiggle her fingers slightly, which is an improvement. ASSESSMENT: 1. Acute cerebrovascular accident. 2. Hypertension. 3. Hyperlipidemia. 4. Diabetes. PLAN: We will continue physical therapy and continue to follow. Hopefully to rehab soon. cc: Walter Saucedo MD
[2019-08-21] MEDS: HUMALOG (PARKWAY) SUBQ SCH ×4 (06:02→21:36)
[2019-08-21] MEDS: PROTONIX PO SCH (06:53)
[2019-08-21] MEDS: MAG-OX PO SCH ×2 (09:29→20:21)
[2019-08-21] MEDS: ASPIRIN PO SCH (09:30)
[2019-08-21] MEDS: NEURONTIN PO SCH ×3 (09:30→17:03)
[2019-08-21] MEDS: LEXAPRO PO SCH (09:30)
[2019-08-21] MEDS: BUSPAR PO SCH ×2 (09:30→20:21)
[2019-08-21] MEDS: GLUCOPHAGE PO SCH ×2 (09:31→17:03)
[2019-08-21] MEDS: CELEXA PO SCH (09:31)
[2019-08-21] MEDS: ELIQUIS PO SCH ×2 (09:31→20:21)
[2019-08-21] MEDS: SINGULAIR PO SCH (09:38)
[2019-08-21] MEDS: COREG PO SCH ×2 (09:38→20:20)
[2019-08-21] MEDS: LASIX PO SCH ×2 (09:38→20:22)
[2019-08-21] MEDS: ZOFRAN IV PRN (11:00)
[2019-08-21] MEDS: NORCO-5 PO PRN ×2 (12:28→20:22)
[2019-08-21] MEDS: LIPITOR PO SCH (20:21)
--- NOTE | 2019-08-21 23:18 | PROGRESS NOTE ---
DATE: 08/21/2019 SUBJECTIVE: Patient has no new complaints. Notes she still has lots of weakness in her left side. PHYSICAL EXAMINATION: Vital Signs: Temperature 98 degrees, pulse 77, respiratory 18, BP 145/95. General: Patient is pleasant. Currently, she is in no distress. HEENT: Normocephalic. Neck: Supple. Cardiovascular: Regular rate. Chest: Clear and nonlabored. Abdomen: Soft. Extremities: Moves her right upper and lower extremity without issue. Left upper and lower have a little bit better movement than it did previously, still very weak. ASSESSMENT: 1. Cerebrovascular accident with left-sided weakness similar to her previous cerebrovascular accident although worsened weakness. 2. Hypertension. 3. Hyperlipidemia. 4. Diabetes. 5. Obstructive sleep apnea. PLAN: We will continue patient in the hospital. Continue to follow. Continue physical therapy. Hopefully transition to rehab Friday. cc: Walter Saucedo MD
[2019-08-22] MEDS: HUMALOG (PARKWAY) SUBQ SCH ×4 (06:18→20:36)
[2019-08-22] MEDS: PROTONIX PO SCH (06:37)
[2019-08-22] MEDS: COREG PO SCH ×2 (08:28→20:13)
[2019-08-22] MEDS: SINGULAIR PO SCH (08:29)
[2019-08-22] MEDS: ASPIRIN PO SCH (08:29)
[2019-08-22] MEDS: BUSPAR PO SCH ×2 (08:29→20:13)
[2019-08-22] MEDS: ELIQUIS PO SCH ×2 (08:29→20:12)
[2019-08-22] MEDS: MAG-OX PO SCH ×2 (08:29→20:12)
[2019-08-22] MEDS: KLOR-CON PO SCH (08:30)
[2019-08-22] MEDS: CELEXA PO SCH (08:30)
[2019-08-22] MEDS: LASIX PO SCH ×2 (08:30→20:13)
[2019-08-22] MEDS: LEXAPRO PO SCH (08:30)
[2019-08-22] MEDS: NEURONTIN PO SCH ×3 (08:30→16:45)
[2019-08-22] MEDS: GLUCOPHAGE PO SCH ×2 (08:30→16:45)
[2019-08-22] MEDS: PRINIVIL PO SCH (08:39)
[2019-08-22] MEDS: NORCO-5 PO PRN ×2 (08:39→20:13)
[2019-08-22] MEDS ORDERED: VITAMIN D PO SCH (09:00)
[2019-08-22] MEDS: ZOFRAN IV PRN (18:29)
[2019-08-22] MEDS: LIPITOR PO SCH (20:13)
--- NOTE | 2019-08-22 21:53 | PROGRESS NOTE ---
DATE: 08/22/2019 SUBJECTIVE: Patient has a little bit more movement of her left upper and lower extremity. She currently is sitting up on the side of the bed with physical therapy. No new complaints. PHYSICAL EXAM: Temperature 98 degrees, pulse 62, respiratory rate 18, BP 151/70.General: Patient is an obese female who is very pleasant. She is in no distress. HEENT: Normocephalic. Neck: Supple. Cardiovascular: Regular rate. Chest: Clear. Abdomen: Soft. Extremities: Moves her right upper and lower extremity without difficulty. Left upper and lower certainly have severe weakness, although slightly improved from admission. ASSESSMENT: 1. Acute cerebrovascular accident with left-sided weakness. 2. Hypertension. 3. Hyperlipidemia. 4. Diabetes. 5. Obstructive sleep apnea. 6. Reflux. 7. Pulmonary emboli currently on Eliquis. PLAN: We are going to continue to tighten down her blood pressure control. Further orders as needed. Hopefully to rehab over the next 1 or 2 days. cc: Walter Saucedo MD
[2019-08-23] MEDS: PROTONIX PO SCH (06:25)
[2019-08-23] MEDS: HUMALOG (PARKWAY) SUBQ SCH ×2 (06:25→11:14)
[2019-08-23] MEDS: BUSPAR PO SCH (08:25)
[2019-08-23] MEDS: GLUCOPHAGE PO SCH (08:26)
[2019-08-23] MEDS: NEURONTIN PO SCH ×2 (08:26→13:01)
[2019-08-23] MEDS: CELEXA PO SCH (08:26)
[2019-08-23] MEDS: ASPIRIN PO SCH (08:26)
[2019-08-23] MEDS: COREG PO SCH (08:26)
[2019-08-23] MEDS: LASIX PO SCH (08:26)
[2019-08-23] MEDS: MAG-OX PO SCH (08:26)
[2019-08-23] MEDS: PRINIVIL PO SCH (08:26)
[2019-08-23] MEDS: SINGULAIR PO SCH (08:26)
[2019-08-23] MEDS: KLOR-CON PO SCH (08:26)
[2019-08-23] MEDS: LEXAPRO PO SCH (08:26)
[2019-08-23] MEDS: ELIQUIS PO SCH (08:27)
[2019-08-23] MEDS: ZOFRAN IV PRN (10:25)
--- NOTE | 2019-08-23 12:34 | DISCHARGE SUMMARY ---
ADMISSION DATE: 08/18/2019 DISCHARGE DATE: 08/22/2019 DISCHARGE DIAGNOSES: 1. Acute cerebrovascular accident with worsened left-sided weakness. 2. Diabetes, on insulin. 3. Hypertension. 4. Hyperlipidemia. 5. History of cerebrovascular accident with left-sided weakness in September of 2018. 6. Osteoarthritis. 7. Obstructive sleep apnea. 8. Obesity. 9. Situational depression. 10. History of pulmonary emboli, currently on Eliquis. CONSULTATIONS: None. PROCEDURES: MRI. BRIEF HOSPITAL COURSE: Patient is a 53-year-old female who unfortunately appears to have extended her previous stroke that she had in September of 2018. Currently, she is having significant left- sided weakness. She is able to sit up with assistance but unable to stand due to her left leg weakness and her left arm weakness. She is very pleasant. She is in no distress. Throughout the hospital stay, she did regain a little bit of insurance coordinator strength on her left. DISCHARGE MEDICATIONS: Celexa 40, metformin 500 twice daily, atorvastatin 80, Eliquis 5 b.i.d., aspirin 81, gabapentin 300, DuoNebs as needed, Singulair, Dulera, hydrocodone p.r.n., magnesium oxide, vitamin D, potassium, Protonix 40, Lexapro 10, BuSpar, Coreg 6.25, and Lasix as needed. DISPOSITION: Patient will be discharged to rehab. She will continue all of her home medications as listed. Greater than 30 minutes were spent in total care. cc: Walter Saucedo MD
[2019-08-23 13:22] VITALS: BP 108/75
== END 2019-08-23 15:25 ==
LOC: P.ED 07:42 → P.MEDSURG 11:31
PROVIDERS: ATTEND Family Medicine